=== PATIENT | male | born 1965 | race Caucasian/White ===

== ENCOUNTER 2023-06-30 08:31 | Day surgery (SDC) | payer BC ==
[2023-06-16 11:28] VITALS: BMI 28.5
[2023-06-30] MEDS ORDERED: fentaNYL PF 100 MCG/2 ML SYRINGE ONE (11:35)
[2023-06-30] MEDS ORDERED: PROPOFOL 20 ML ONE (11:35)
[2023-06-30] MEDS ORDERED: Midazolam HCl 2 mg/2 ml Vial ONE (11:35)
[2023-06-30] MEDS ORDERED: Ondansetron PF 4 MG/2 ML Vial ONE (11:36)
[2023-06-30] MEDS ORDERED: Dexamethasone 4 mg/ml Vial ONE (11:36)
[2023-06-30] MEDS ORDERED: Lidocaine 1% PF 5 ML VIAL ONE (11:36)
[2023-06-30] MEDS ORDERED: LevoFLOXacin D5W 500 mg (100 mL) BAG ONE (11:47)
[2023-06-30] MEDS ORDERED: Phenazopyridine HCl 100 MG TAB ONE (13:57)
[2023-06-30] MEDS ORDERED: Oxybutynin 5 MG TAB ONE (13:57)
== END 2023-06-30 15:43 | disposition home or self-care (01) ==
LOC: SDC 08:31
PROVIDERS: ATTEND Urology
PROC: 0TC68ZZ Extirpation of Matter from Right Ureter, Via Natural or Artificial Opening Endoscopic (ICD-10-PCS; principal; 2023-06-30)
PROC: 0T768DZ Dilation of Right Ureter with Intraluminal Device, Via Natural or Artificial Opening Endoscopic (ICD-10-PCS; principal; 2023-06-30)
DX: N13.5 Crossing vessel and stricture of ureter without hydronephrosis (principal); N20.0 Calculus of kidney; I10 Essential (primary) hypertension
CPT/HCPCS: 82365; 88300; C1713; C1747; C1769; C2617; J1100; J1956; J2250; J2405; J2704